=== PATIENT | male | born 1980 | race Caucasian/White ===

== ENCOUNTER 2017-05-13 16:17 | Emergency (ER) | payer OTHER | END 2017-05-13 18:28 | disposition home or self-care (01) | LOC: ER 16:17 | DX: M54.9 Dorsalgia, unspecified (principal); Z76.5 Malingerer [conscious simulation]; K21.9 Gastro-esophageal reflux disease without esophagitis; Z85.47 Personal history of malignant neoplasm of testis; F17.210 Nicotine dependence, cigarettes, uncomplicated; Z79.899 Other long term (current) drug therapy | CPT/HCPCS: 96372; J1100; J1885 ==